=== PATIENT | male | born 1995 | race Caucasian/White ===

== ENCOUNTER 2017-06-05 12:21 | Emergency (ER) | payer OTHER ==
[2017-06-05 14:40] VITALS: BP 122/65
== END 2017-06-05 14:40 | disposition home or self-care (01) ==
LOC: ED 12:21
DX: S60.041A Contusion of right ring finger without damage to nail, initial encounter (principal); F17.210 Nicotine dependence, cigarettes, uncomplicated; W22.01XA Walked into wall, initial encounter; Y93.89 Activity, other specified; Y99.8 Other external cause status; Y92.89 Other specified places as the place of occurrence of the external cause